=== PATIENT | female | born 1970 | race Caucasian/White ===

== ENCOUNTER → 2019-12-31 | Outpatient (CLI) | payer OTHER ==
[~2019-12-31] MED LIST: ALLEGRA180 MG PO; APAP500 PO; ASPIRIN325 PO; BENADRYL25 MG PO; CEPHALEXIN 500500 M3 PO; CLARITIN10 MG PO; DILAUDID2 M1 PO; FLEXERIL PO; MOBIC15 MG PO; NORCO 5-325 TA1 EACH PO; ONDANSETRON HCL4 M2 PO; ONE DAILY MULT1 EAC3 PO; OXYCODONE HCL 55 MG PO; OXYCONTIN10 M1 PO; PROZAC 20 MG20 M1 PO; ZOFRAN ODT4 MG PO; ZYRTEC10 MG PO
[2019-12-31 09:51] LABS: HEMATOCRIT 37.6 % (37.0-47.0); HEMOGLOBIN 13.4 gm/dL (12.0-15.0); MCH 31.1 pg (26.0-34.0); MCHC 35.7 g/dL (28.0-37.0); MPV 7.7 fl. (7.2-11.1); RBC 4.32 mil/uL (4.20-5.00); RDW-CV 13.1 % (10.5-14.5); WBC 7.6 thou/uL (4.0-11.0)
[2019-12-31 10:03] LABS: ALBUMIN 3.8 g/dL (3.4-5.0); CALCIUM 8.7 mg/dL (8.5-10.1); CREATININE 0.7 mg/dL (0.6-1.3); POTASSIUM 4.1 mmol/L (3.5-5.1); TOTAL BILIRUBIN 0.3 mg/dL (<0.1-1.0)
--- NOTE | 2019-12-31 14:18 | EKG ---
[place] [address] ELECTROCARDIOGRAM REPORT Name: MAYRA OCONNORDY ROCIO Room: [facility]#: [id number] Admission: 12/31/19 Attend Phys: Walter Contreras MD Discharge: Date of : 66 Date of Service: 12/31/19 0955 Report #: [id number] THIS REPORT FOR: //name// [facility] Test Date: 2019-12-31 Test Time: 09:55:55 Pat Name: HUNTER OCONNOR Department: Room: Gender: F [employer]er: : 1970 Requested By: Walter Contreras Order Number: [id number] Reading MD: Danilo Mendoza Measurements Intervals Norris Rate: 77 P: 49 WA: 154 QRS: -21 QRSD: 93 T: 22 QT: 382 QTc: 433 Interpretive Statements Sinus rhythm Consider left atrial enlargement Borderline left axis deviation Low voltage, precordial leads RSR' in V1 or V2, probably normal variant Compared to ECG 12/01/2016 22:19:57 Low QRS voltage now present RSR' in V1 or V2 now present Electronically Signed On 12-31-2019 14:16:14 CDT by Danilo Mendoza [email or web address] <ELECTRONICALLY SIGNED> By: Danilo Mendoza MD, [facility] 12/31/19 1416 0955 0955 Danilo Mendoza MD, [facility] /EPI
== END ==
LOC: M.LAB 09:14
PROVIDERS: Anesthesiology
DX: Z01.810 Encounter for preprocedural cardiovascular examination (principal)